=== PATIENT | male | born 1985 | race Caucasian/White ===

== ENCOUNTER 2017-03-05 09:59 | Emergency (ER) | payer SELFPAY ==
[2017-03-05] MEDS ORDERED: HYDROCODONE BIT1 T45 PO (11:09)
[2017-03-05 11:58] VITALS: BP 120/79
== END 2017-03-05 11:14 | disposition home or self-care (01) ==
LOC: ED 09:59
DX: S99.912A Unspecified injury of left ankle, initial encounter (principal); S80.02XA Contusion of left knee, initial encounter; S90.32XA Contusion of left foot, initial encounter; S90.02XA Contusion of left ankle, initial encounter; X50.1XXA Overexertion from prolonged static or awkward postures, initial encounter; Y93.89 Activity, other specified; Y92.79 Other farm location as the place of occurrence of the external cause
CPT/HCPCS: J1885

== ENCOUNTER 2018-02-19 19:16 | Emergency (ER) | payer MEDICAID ==
[~2018-02-19] VITALS: Ht 177.8 cm; Wt 68.2 kg
[~2018-02-19 19:16] MED LIST: HYDROCODONE BIT1 T45 PO
[2018-02-19] MEDS ORDERED: NORCO 325 MG-51 TA1 PO (21:31)
[2018-02-19 22:15] VITALS: BP 145/89
== END 2018-02-19 22:15 | disposition home or self-care (01) ==
LOC: ED 19:16
DX: S82.141A Displaced bicondylar fracture of right tibia, initial encounter for closed fracture (principal); W17.89XA Other fall from one level to another, initial encounter; Y92.008 Other place in unspecified non-institutional (private) residence as the place of occurrence of the external cause; F17.200 Nicotine dependence, unspecified, uncomplicated
CPT/HCPCS: J0595; J1885

== ENCOUNTER → 2018-03-30 | Outpatient (CLI) | payer MEDICAID ==
[2018-03-29 23:10] VITALS: BP 128/65
[~2018-03-30] MED LIST changes: +NORCO 325 MG-51 TA1 PO
== END ==
LOC: RAD 08:15
DX: I82.401 Acute embolism and thrombosis of unspecified deep veins of right lower extremity (principal); Z98.890 Other specified postprocedural states

== ENCOUNTER 2018-05-10 20:06 | Emergency (ER) | payer MEDICAID ==
[~2018-05-10] VITALS: Ht 180.3 cm; Wt 68.2 kg
[2018-05-10 21:48] VITALS: BP 99/65
== END 2018-05-10 21:48 | disposition home or self-care (01) ==
LOC: ED 20:06
DX: S82.141D Displaced bicondylar fracture of right tibia, subsequent encounter for closed fracture with routine healing (principal)

== ENCOUNTER 2018-06-07 10:30 | Outpatient (RCR) | payer MEDICAID | END 2018-06-15 | disposition home or self-care (01) | LOC: PT | DX: S82.201D Unspecified fracture of shaft of right tibia, subsequent encounter for closed fracture with routine healing (principal) ==

== ENCOUNTER 2019-05-30 15:36 | Emergency (ER) | payer MEDICAID ==
[~2019-05-30 15:36] MED LIST changes: +CYCLOBENZAPRINE10 M1 PO; +HEATING PAD1 EACH MC; +IBU800 M2 PO
[2019-05-30] MEDS ORDERED: NORCO 325 MG-51 TA1 PO (16:51)
[2019-05-30 17:00] VITALS: BP 112/68
== END 2019-05-30 16:59 | disposition home or self-care (01) ==
LOC: ED 15:36
DX: S62.603A Fracture of unspecified phalanx of left middle finger, initial encounter for closed fracture (principal); F17.210 Nicotine dependence, cigarettes, uncomplicated; Z88.0 Allergy status to penicillin; W27.8XXA Contact with other nonpowered hand tool, initial encounter; Y92.009 Unspecified place in unspecified non-institutional (private) residence as the place of occurrence of the external cause

== ENCOUNTER → 2019-07-27 | Outpatient (CLI) | payer MEDICAID | LOC: RAD 09:28 | DX: S89.91XA Unspecified injury of right lower leg, initial encounter (principal); Z98.890 Other specified postprocedural states ==

== ENCOUNTER 2020-10-06 09:04 | Emergency (ER) | payer MEDICAID ==
[~2020-10-06 09:04] MED LIST changes: +AZITHROMYCIN 250MGPK PO; +PREDNISONE20 M1 PO
[2020-10-06] MEDS ORDERED: TYLENOL ARTHRI650 M2 PO (10:34)
[2020-10-06] MEDS ORDERED: NORCO 325 MG-51 TA1 PO (10:55)
[2020-10-06 11:35] VITALS: BP 123/62
== END 2020-10-06 11:35 | disposition home or self-care (01) ==
LOC: ED 09:04
DX: M25.561 Pain in right knee (principal); F17.200 Nicotine dependence, unspecified, uncomplicated; Z96.651 Presence of right artificial knee joint; Z88.0 Allergy status to penicillin; Z79.1 Long term (current) use of non-steroidal anti-inflammatories (NSAID)
CPT/HCPCS: J1885

== ENCOUNTER 2020-10-29 10:53 | Emergency (ER) | payer MEDICAID ==
[~2020-10-29 10:53] MED LIST changes: +TYLENOL ARTHRI650 M2 PO
[2020-10-29 11:01] VITALS: BP 116/76
[2020-10-29] MEDS ORDERED: VALIUM 5MG T5 MG/TAB PO (11:02)
== END 2020-10-29 11:25 | disposition home or self-care (01) ==
LOC: ED 10:53
DX: M26.602 Left temporomandibular joint disorder, unspecified (principal); F17.210 Nicotine dependence, cigarettes, uncomplicated; Z88.0 Allergy status to penicillin